=== PATIENT | female | born 1975 | race Hispanic/Latino ===

== ENCOUNTER 2024-06-12 18:56 | Emergency (ER) | payer OTHER ==
[~2024-06-12] VITALS: Ht 157.5 cm; Wt 88.9 kg
[2024-06-12 19:52] LABS: BASOPHILS # (AUTO) 0.1 (0.0-0.1); BASOPHILS % 0.3 % (0.0-1.0); EOSINOPHILS # (AUTO) 0.1 (0.0-0.4); EOSINOPHILS % 0.3 % (0.0-6.0); HEMATOCRIT 40.7 % (34.2-44.1); HEMOGLOBIN 12.6 g/dL (12.0-16.0); LYMPHOCYTES # (AUTO) 2.1 (1.0-3.2); MEAN CORPUSCULAR HEMOGLOBIN 25.8 pg (28-32); MEAN CORPUSCULAR VOLUME 83.4 fL (81-99); MONOCYTES # (AUTO) 0.7 (0.2-0.8); MONOCYTES % 4.2 % (4.4-11.3); NEUTROPHILS # (AUTO) 13.2 (2.1-6.9); NEUTROPHILS % 81.9 % (38.7-80.0); PLATELET COUNT 305 x10e3/uL (140-360); RED BLOOD COUNT 4.88 x10e6/uL (3.6-5.1); RED CELL DISTRIBUTION WIDTH 14.8 % (11.7-14.4); WHITE BLOOD COUNT 16.14 x10e3/uL (4.8-10.8)
[2024-06-12] MEDS: ONDANSETRON HCL INJ 2MG/ML 2ML 2 MG/ML VIAL IV STA (19:53)
[2024-06-12] MEDS: Morphine 4mg INJECTION 4 MG/ML INJ IV STA (19:53)
[2024-06-12] MEDS: SODIUM CHLORIDE 0.9% 1000ML 1,000 ML IV STA (19:54)
[2024-06-12 20:11] LABS: ANION GAP 17.7 mmol/L (8-16); BILIRUBIN,TOTAL 0.4 mg/dL (0.2-1.2); CREATININE, SERUM 0.76 mg/dL (0.57-1.11); POTASSIUM 3.7 mmol/L (3.5-5.1)
[2024-06-12] MEDS ORDERED: IOPAMIDOL 370 MG/ML 100 ML INFUS..BTL INJ ONE (21:37)
[2024-06-12 22:09] VITALS: PULSE 81; RESP 19; TEMP 98.7
[2024-06-12 22:30] LABS: AMPHETAMINES SCREEN,URINE NEGATIVE (NEGATIVE); BENZODIAZEPINES SCREEN,URINE NEGATIVE (NEGATIVE); CANNABINOIDS SCREEN,URINE NEGATIVE (NEGATIVE); CLARITY,URINE CLEAR (CLEAR); COLOR,URINE YELLOW (YELLOW); LEUKOCYTE ESTERASE ,URINE NEGATIVE (NEGATIVE); METHADONE SCREEN, URINE NEGATIVE (NEGATIVE); NITRITE,URINE NEGATIVE (NEGATIVE); OPIATES SCREEN,URINE POSITIVE (NEGATIVE); PH,URINE 7 (5 - 7); PHENCYCLIDINE SCREEN,URINE NEGATIVE (NEGATIVE); PROTEIN,URINE DIPSTICK NEGATIVE (NEGATIVE)
[2024-06-12 22:31] LABS: BILIRUBIN,URINE NEGATIVE (NEGATIVE); GLUCOSE, URINE NEGATIVE (NEGATIVE); KETONES,URINE 1+ (NEGATIVE); URINE UROBILINOGEN 0.2 mg/dL (0.2 - 1)
[2024-06-12 22:32] LABS: AMORPHOUS SEDIMENT,URINE FEW (FEW); BACTERIA,URINE FEW /HPF; EPITHELIAL CELLS,URINE FEW /LPF; RBC,URINE 0-5 /HPF (0-5); WBC,URINE (MAN) 0-5 /HPF (0-5)
[2024-06-12] MEDS ORDERED: ONDANSETRON ODT4 MG PO (22:50)
[2024-06-12] MEDS ORDERED: AMOX TR-K CLV1 EAC2 PO (22:50)
[2024-06-12] MEDS ORDERED: ULTRAM 50MG50 MG PO (22:50)
[2024-06-12 23:00] VITALS: BP 141/109; PULSE 83; RESP 19; TEMP 98.6; O2SAT 100
== END 2024-06-12 23:05 | disposition home or self-care (01) ==
LOC: ER 19:00
DX: R11.2 Nausea with vomiting, unspecified (principal); K52.9 Noninfective gastroenteritis and colitis, unspecified; K43.9 Ventral hernia without obstruction or gangrene; N83.201 Unspecified ovarian cyst, right side; R10.30 Lower abdominal pain, unspecified
CPT/HCPCS: 36415; 74177; 80053; 80307; 80320; 81001; 83690; 84702; 85025; 99284; J2270; J2405; J2543; J7030; Q9967

== ENCOUNTER 2024-11-10 00:33 | Inpatient (IN) | payer OTHER ==
[2024-11-10] VITALS (15 sets, daily range): BP systolic 135–159; BP diastolic 67–94; PULSE 64–92; RESP 18–20; TEMP 97.6–98.5; O2SAT 94–100
[~2024-11-10] VITALS: Ht 157.5 cm; Wt 93.0 kg
[~2024-11-10 00:33] MED LIST: AMOX TR-K CLV1 EAC2 PO; ONDANSETRON ODT4 MG PO; ULTRAM 50MG50 MG PO
[2024-11-10] MEDS ORDERED: ONDANSETRON HCL INJ 2MG/ML 2ML 2 MG/ML VIAL ONE ×2 (01:09→14:06)
[2024-11-10] MEDS ORDERED: FENTANYL CITRATE/PF 100MCG/2 ML INJ ONE ×3 (01:10→14:07)
[2024-11-10 01:12] LABS: BASOPHILS # (AUTO) 0.1 (0.0-0.1); BASOPHILS % 0.4 % (0.0-1.0); EOSINOPHILS # (AUTO) 0.2 (0.0-0.4); EOSINOPHILS % 1.3 % (0.0-6.0); HEMATOCRIT 39.5 % (34.2-44.1); HEMOGLOBIN 12.8 g/dL (12.0-16.0); LYMPHOCYTES # (AUTO) 2.4 (1.0-3.2); LYMPHOCYTES % 17.8 % (18.0-39.1); MEAN CORPUSCULAR HEMOGLOBIN 26.2 pg (28-32); MEAN CORPUSCULAR HGB CONC 32.4 g/dL (31-35); MEAN CORPUSCULAR VOLUME 80.8 fL (81-99); MONOCYTES # (AUTO) 0.7 (0.2-0.8); MONOCYTES % 5.2 % (4.4-11.3); PLATELET COUNT 296 x10e3/uL (140-360); RED BLOOD COUNT 4.89 x10e6/uL (3.6-5.1); RED CELL DISTRIBUTION WIDTH 16.4 % (11.7-14.4); WHITE BLOOD COUNT 13.34 x10e3/uL (4.8-10.8)
[2024-11-10] MEDS: FENTANYL CITRATE/PF 100MCG/2 ML INJ IV ONE (01:15)
[2024-11-10] MEDS: ONDANSETRON HCL INJ 2MG/ML 2ML 2 MG/ML VIAL IV STA (01:15)
[2024-11-10 01:34] LABS: BILIRUBIN,URINE NEGATIVE (NEGATIVE); CLARITY,URINE SL CLOUDY (CLEAR); COLOR,URINE PINK (YELLOW); GLUCOSE, URINE NEGATIVE (NEGATIVE); KETONES,URINE 2+ (NEGATIVE); LEUKOCYTE ESTERASE ,URINE NEGATIVE (NEGATIVE); NITRITE,URINE NEGATIVE (NEGATIVE); PH,URINE 7 (5 - 7); PROTEIN,URINE DIPSTICK TRACE (NEGATIVE); URINE UROBILINOGEN 0.2 mg/dL (0.2 - 1)
[2024-11-10 01:39] LABS: ALBUMIN 3.8 g/dL (3.5-5.0); ALBUMIN/GLOBULIN RATIO 0.9 (0.8-2.0); ANION GAP 17.4 mmol/L (8-16); BILIRUBIN,TOTAL 0.4 mg/dL (0.2-1.2); CALCIUM 9.2 mg/dL (8.4-10.2); CREATININE, SERUM 0.76 mg/dL (0.57-1.11); LIPASE 17 U/L (8-78); TOTAL PROTEIN 7.9 g/dL (6.5-8.1)
[2024-11-10 01:40] LABS: POTASSIUM 3.4 mmol/L (3.5-5.1)
[2024-11-10 01:48] LABS: BACTERIA,URINE MANY /HPF; RBC,URINE >50 /HPF (0-5)
[2024-11-10 01:49] LABS: EPITHELIAL CELLS,URINE MODERATE /LPF
[2024-11-10 02:02] LABS: TROPONIN I < 0.05 ng/mL (0.0-0.40)
[2024-11-10] MEDS: FENTANYL CITRATE/PF 100MCG/2 ML INJ IV PRN (02:40)
[2024-11-10] MEDS ORDERED: SODIUM CHLORIDE 0.9% 100 ML ONE (02:51)
[2024-11-10] MEDS ORDERED: CEFTRIAXONE 2 GM VIAL ONE (02:51)
[2024-11-10] MEDS ORDERED: METRONIDAZOLE 500MG/NS 100ML 200 ML IV ONE (02:52)
[2024-11-10] MEDS: METRONIDAZOLE 750MG/NS 150ML 150 ML IV SCH (03:01)
[2024-11-10] MEDS ORDERED: IOPAMIDOL 370 MG/ML 100 ML INFUS..BTL INJ ONE (05:13)
[2024-11-10] MEDS: CEFTRIAXONE 2 GM in SODIUM CHLORIDE 0.9% 100 ML IV SCH (05:27)
[2024-11-10] MEDS: SODIUM CHLORIDE 0.9% 1000ML 1,000 ML IV SCH (05:27)
[2024-11-10] MEDS: Morphine 4mg INJECTION 4 MG/ML INJ IV PRN (06:11)
[2024-11-10] MEDS ORDERED: SUCCINYLCHOLINE CHLORIDE 20 MG/ML 10ML VIAL ONE (14:06)
[2024-11-10] MEDS ORDERED: LIDOCAINE HCL 2% LOCAL INJ 5 ML SDV VIAL INJ ONE (14:06)
[2024-11-10] MEDS ORDERED: ACETAMINOPHEN 1000 MG/100 ML 100 ML IV ONE (14:06)
[2024-11-10] MEDS ORDERED: DEXAMETHASONE SOD PHOS INJ 4 MG/ML SDV ONE (14:06)
[2024-11-10] MEDS ORDERED: ROCURONIUM BROMIDE 1 ML IV ONE (14:06)
[2024-11-10] MEDS ORDERED: SEVOFLURANE INHAL SOLN 250 ML PEN BTL ONE (14:06)
[2024-11-10] MEDS ORDERED: PROPOFOL IV EMULSION 10 MG/ML 20 ML VIAL ONE (14:06)
[2024-11-10] MEDS ORDERED: SUGAMMADEX SODIUM 200 MG/2 ML VIAL IV ONE (14:06)
[2024-11-10] MEDS ORDERED: MIDAZOLAM HCL 2 MG/2 ML VIAL ONE (14:06)
[2024-11-10] MEDS ORDERED: FAMOTIDINE 20 MG/2 ML VIAL IV ONE (14:06)
[2024-11-10] MEDS ORDERED: KETOROLAC TROMETHAMINE 30 MG/ML VIAL ONE (14:08)
[2024-11-10] MEDS ORDERED: SODIUM CHLORIDE 0.9% 1000ML 1,000 ML ONE (14:18)
[2024-11-10] MEDS: HYDROMORPHONE 2MG/ML IV PRN (16:34)
[2024-11-10] MEDS: ONDANSETRON HCL INJ 2MG/ML 2ML 2 MG/ML VIAL IV PRN (16:35)
[2024-11-10] MEDS: KETOROLAC TROMETHAMINE 30 MG/ML VIAL IV PRN (20:29)
[2024-11-11 03:21] VITALS: BP 139/76; PULSE 60; RESP 18; TEMP 97.6; O2SAT 98
[2024-11-11 06:26] LABS: BASOPHILS % 0.2 % (0.0-1.0); EOSINOPHILS % 0.2 % (0.0-6.0); HEMATOCRIT 33.4 % (34.2-44.1); HEMOGLOBIN 10.6 g/dL (12.0-16.0); LYMPHOCYTES # (AUTO) 1.3 (1.0-3.2); LYMPHOCYTES % 14.2 % (18.0-39.1); MEAN CORPUSCULAR HEMOGLOBIN 26.4 pg (28-32); MEAN CORPUSCULAR HGB CONC 31.7 g/dL (31-35); MEAN CORPUSCULAR VOLUME 83.3 fL (81-99); MONOCYTES # (AUTO) 0.5 (0.2-0.8); MONOCYTES % 5.4 % (4.4-11.3); NEUTROPHILS # (AUTO) 7.5 (2.1-6.9); NEUTROPHILS % 79.5 % (38.7-80.0); PLATELET COUNT 276 x10e3/uL (140-360); RED BLOOD COUNT 4.01 x10e6/uL (3.6-5.1); RED CELL DISTRIBUTION WIDTH 16.6 % (11.7-14.4); WHITE BLOOD COUNT 9.38 x10e3/uL (4.8-10.8)
[2024-11-11 07:04] LABS: ANION GAP 12.1 mmol/L (8-16); CALCIUM 8.2 mg/dL (8.4-10.2); CREATININE, SERUM 0.63 mg/dL (0.57-1.11); POTASSIUM 4.1 mmol/L (3.5-5.1)
[2024-11-11 08:01] VITALS: BP 118/74; PULSE 74; RESP 16; TEMP 98.1; O2SAT 99
[2024-11-11 08:20] VITALS: BP 118/74; PULSE 74; RESP 16; TEMP 98.1; O2SAT 99
[2024-11-11] MEDS: HYDROCODONE/APAP 7.5MG-325MG 1 EA TAB PO PRN (10:27)
[2024-11-11 12:48] VITALS: BP 129/74; PULSE 77; RESP 18; TEMP 98.2; O2SAT 98
== END 2024-11-11 14:40 | disposition home or self-care (01) | DRG 354 ==
LOC: ER 00:53 → ERHOLD 02:58 → MED/SURG3 04:01
PROVIDERS: ADMIT Internal Medicine; ATTEND Internal Medicine
PROC: 0WQF0ZZ Repair Abdominal Wall, Open Approach (ICD-10-PCS; 2024-11-10)
PROC: 0WUF0JZ Supplement Abdominal Wall with Synthetic Substitute, Open Approach (ICD-10-PCS; principal; 2024-11-10 13:18)
DX: K43.6 Other and unspecified ventral hernia with obstruction, without gangrene (principal); N39.0 Urinary tract infection, site not specified; E78.5 Hyperlipidemia, unspecified; F17.200 Nicotine dependence, unspecified, uncomplicated
CPT/HCPCS: 36415; 36568; 71045; 74018; 74177; 80048; 80053; 81001; 83690; 84484; 85025; 88302; 93005; 94799; 99284; C1781; J0330; J0696; J1100; J1171; J1885; J2003; J2250; J2270; J2405; J7030; J7050; Q9967